=== PATIENT | male | born 1945 | race Caucasian/White ===

== ENCOUNTER → 2016-10-15 | Outpatient (CLI) | payer OTHER, MEDICARE | LOC: BMCIMAGING 10:35 | PROVIDERS: ATTEND Physician Assistant | DX: M54.42 Lumbago with sciatica, left side (principal); M51.36 Other intervertebral disc degeneration, lumbar region; M12.9 Arthropathy, unspecified ==

== ENCOUNTER → 2016-10-28 | Outpatient (CLI) | payer OTHER, MEDICARE | LOC: FIMAGING 16:06 | PROVIDERS: ATTEND Physician Assistant | DX: M48.06 Spinal stenosis, lumbar region (principal); M99.73 Connective tissue and disc stenosis of intervertebral foramina of lumbar region; M89.38 Hypertrophy of bone, other site; M51.27 Other intervertebral disc displacement, lumbosacral region ==

== ENCOUNTER → 2017-06-30 | Outpatient (CLI) | payer OTHER, MEDICARE | LOC: FIMAGING 14:30 | PROVIDERS: ATTEND Physician Assistant Medical | DX: M21.752 Unequal limb length (acquired), left femur (principal); M43.8X5 Other specified deforming dorsopathies, thoracolumbar region ==

== ENCOUNTER → 2017-07-02 | Outpatient (CLI) | payer OTHER, MEDICARE | LOC: FIMAGING 11:38 | PROVIDERS: ATTEND Physician Assistant Medical | DX: M21.70 Unequal limb length (acquired), unspecified site (principal) ==

== ENCOUNTER → 2017-09-20 | Outpatient (CLI) | payer OTHER, MEDICARE | LOC: BMCIMAGING 10:33 | PROVIDERS: ATTEND Physician Assistant | DX: Z13.820 Encounter for screening for osteoporosis (principal); M81.0 Age-related osteoporosis without current pathological fracture ==

== ENCOUNTER → 2018-08-16 | Outpatient (CLI) | payer OTHER, MEDICARE | LOC: FIMAGING 13:02 | PROVIDERS: ATTEND Neurological Surgery | DX: M48.062 Spinal stenosis, lumbar region with neurogenic claudication (principal); M46.96 Unspecified inflammatory spondylopathy, lumbar region; M51.36 Other intervertebral disc degeneration, lumbar region; M51.37 Other intervertebral disc degeneration, lumbosacral region; N28.9 Disorder of kidney and ureter, unspecified; M41.86 Other forms of scoliosis, lumbar region ==

== ENCOUNTER → 2018-08-24 | Outpatient (CLI) | payer OTHER, MEDICARE | LOC: FIMAGING 08:58 | PROVIDERS: ATTEND Physician Assistant | DX: N28.9 Disorder of kidney and ureter, unspecified (principal) ==

== ENCOUNTER → 2018-08-29 | Outpatient (CLI) | payer OTHER, MEDICARE ==
[~2018-08-29] MED LIST: IOPAMIDOL (ISOVUE-300) 100 ML BTL ONE
== END ==
LOC: FIMAGING 11:22
PROVIDERS: ATTEND Physician Assistant
DX: N28.89 Other specified disorders of kidney and ureter (principal); K57.30 Diverticulosis of large intestine without perforation or abscess without bleeding
CPT/HCPCS: 74178; Q9967

== ENCOUNTER → 2018-10-10 | Outpatient (CLI) | payer OTHER, MEDICARE | LOC: BMCIMAGING 08:52 | PROVIDERS: ATTEND Physician Assistant | DX: Z01.818 Encounter for other preprocedural examination (principal); K44.9 Diaphragmatic hernia without obstruction or gangrene ==

== ENCOUNTER 2018-11-08 05:57 | Inpatient (IN) | payer OTHER, MEDICARE ==
--- NOTE | 2018-11-02 08:59 | GHP ---
[f rep st] PREOP HISTORY AND PHYSICAL DATE OF ADMISSION: 11/08/2018 HISTORY OF PRESENT ILLNESS: The patient is a 73-year-old male with back and leg pain. The pain seems to be concentrated in the gluteal region radiating to the left anterior medial thigh. He has tried an L4-5 epidural steroid injection and an L3-4 transforaminal epidural steroid injection without long- lasting relief of his pain. He notes foot numbness and dorsi and plantarflexion weakness. Rest will improve his back pain and activity worsens his pain. He denies loss of bowel or bladder control. PAST MEDICAL HISTORY: GERD. PAST SURGICAL HISTORY: Transurethral resection of prostate. SOCIAL HISTORY: Admits to social use of alcohol. Denies tobacco use. He is and retired. FAMILY HISTORY: No pertinent neurosurgical family history. ALLERGIES: Metoprolol, Avocado. HOME MEDICATIONS: 1. Vitamin. 2. Prevacid. 3. Hydrochlorothiazide. 4. Atenolol. REVIEW OF SYSTEMS: Negative except for what is mentioned in the HPI. PHYSICAL EXAM: GENERAL: Patient seen and examined. No distress. Mood and affect are appropriate. Alert, oriented. HEENT: Extraocular movements are intact. Pupils are equal and reactive. Facial expression is symmetrical. Tongue is midline with protrusion. Hearing grossly intact. Speech is fluent. EXTREMITIES: Muscle strength is well preserved in his upper and lower extremities at a 5/5. Sensation intact RESULTS: MRI of the lumbar spine reveals moderate degenerative disk disease with right lateral osteophytes and moderate bilateral facet arthropathy resulting in mild to moderate right neural foraminal stenosis and mild right lateral recess stenosis at L2-3. There is moderate to severe central canal stenosis, severe left lateral recess, and moderate to severe bilateral neural foraminal stenosis secondary to moderate degenerative disk disease, left paramedian disk herniation, osteophytes, and bilateral facet arthropathy at L3- 4. At L4-5, there is moderate central canal stenosis, moderate to severe left lateral recess stenosis, and moderate to severe left neural foraminal stenosis secondary to severe bilateral facet arthropathy, mild degenerative disk disease with circumferential disk bulge and osteophytes. At L5-S1, there is mild degenerative disk disease, moderate bilateral facet arthropathy, mild disk bulge , and mild grade 1 anterolisthesis resulting in mild left neural foraminal stenosis without central canal stenosis. ASSESSMENT AND PLAN: In summary, the patient is a 73-year-old male with ongoing back and lower extremity symptoms. He has tried conservative treatment without long-term relief. We recommend proceeding with surgical intervention at this time with a transforaminal lumbar interbody fusion at L2-3, 3-4, 4-5, and L5-S1. The risks, benefits, procedure, and recovery process were discussed in detail with the patient. Patient has elected to move forward with surgery, and all consents have been signed. /[id number]/MODL MTDD
[2018-11-08] MEDS ORDERED: morphINE SR 15 MG TAB PO ONE (06:24)
[2018-11-08] MEDS ORDERED: ceFAZolin 2 GM/DEXTROSE 100 ML IV ONE (06:24)
[2018-11-08] MEDS ORDERED: ACETAMINOPHEN 500 MG TAB PO ONE (06:24)
[2018-11-08] MEDS ORDERED: GABAPENTIN 300 MG CAP PO ONE (06:24)
[2018-11-08] MEDS ORDERED: LR 1,000 ML IV ONE (06:25)
[2018-11-08] MEDS ORDERED: GENTAMICIN SULFATE 80 MG/2 ML VIAL ONE ×2 (06:42→10:11)
[2018-11-08] MEDS ORDERED: BUPIVACAINE/EPI 0.25% 30 ML SDV ONE (06:42)
[2018-11-08] MEDS ORDERED: THROMBIN (BOVINE) 20,000 UNIT VIAL TP ONE (06:42)
[2018-11-08] MEDS ORDERED: CHLORHEXIDINE GLUC HIBICLENS 118 ML BTL TP ONE (06:42)
[2018-11-08] MEDS ORDERED: CITRATE DEXTROSE SOLN 500 ML BAG ONE ×2 (07:14→08:23)
--- NOTE | 2018-11-08 07:22 | PDANEPAE ---
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 HUA triggers - Neurologic History Hx Cerebrovascular Accident: No Hx Seizures: No Hx Dementia: No - Endocrine History Hx Diabetes: No - Renal History Hx Renal Disorders: No - Liver History Hx Hepatic Disorders: No - Neurological & Psychiatric Hx Hx Neurological and Psychiatric Disorders: Yes Neurological / Psychiatric History Comment: bilat feet numbness/tingling L>R. L buttock sciatic pain - Cancer History Hx Cancer: No - Congenital Disorder History Hx Congenital Disorders: No - GI History Hx Gastrointestinal Disorders: Yes Gastrointestinal History Comment: acid reflux, diahrrea - Other Health History Other Health History: [place]. bridges fixed. ED - Chronic Pain History Chronic Pain: Yes (back,legs,feet) - Surgical History Prior Surgeries: nonein last 5 yrs. turp 2006. arthoscopic sx 1979' ANE Review of Systems Review of Systems: - Exercise capacity METS (RN): 3 METS ANE Patient History - Allergies Allergies/Adverse Reactions: metoprolol Allergy (Intermediate, Verified 10/28/18 11:32) avocado Allergy (Verified 10/26/18 16:32) - Home Medications Home Medications: Atenolol [Tenormin 50 mg (*)] 50 mg PO DAILY 10/26/18 [Last Taken Unknown] Hydrochlorothiazide [HCTZ (*)] 25 mg PO DAILY 10/26/18 [Last Taken Unknown] Lansoprazole [Prevacid] 30 mg PO DAILY 10/26/18 [Last Taken Unknown] Multivitamins [Multivitamin (*)] 1 each PO DAILY 10/26/18 [Last Taken Unknown] - NPO status NPO Since - Liquids (Date): 11/08/18 NPO Since - Solids (Date): 11/07/18 - Smoking Hx Smoking Status: Never smoked - Family Anes Hx Family Hx Anesthesia Complications: none ANE Labs/Vital Signs - Vital Signs Blood Pressure: 145/88 Heart Rate: 48 Respiratory Rate: 14 O2 Sat (%): 91 Height: 180.34 cm Weight: 86.183 kg ANE Physical Exam - Airway Neck exam: FROM Mallampati Score: Class 1 Mouth exam: normal dental/mouth exam - Pulmonary Pulmonary: no respiratory distress, no rales or rhonchi - Cardiovascular Cardiovascular: regular rate and rhythym, no murmur, rub, or gallop - ASA Status ASA Status: III ANE Anesthesia Plan Anesthesia Plan: general endotracheal anesthesia Lines/Monitors: arterial line Total IV Anesthesia: Yes
--- NOTE | 2018-11-08 07:23 | PDHPUP ---
History & Physical Update H&P update statement: This history and physical update is based on an assessment of the patient which was completed after admission or registration (within 24 hours), but prior to the surgery/procedure. H&P update: H&P reviewed & patient examined, no change in patient's condition since H&P completed
[2018-11-08] MEDS ORDERED: MIDAZOLAM 2 MG/2 ML VIAL ONE (07:26)
[2018-11-08] MEDS ORDERED: REMIFENTANIL HCL 1 MG VIAL ONE ×6 (07:34→14:42)
[2018-11-08] MEDS ORDERED: PROPOFOL 200 MG/20 ML VIAL ONE (07:34)
[2018-11-08] MEDS ORDERED: LIDOCAINE 2% 100 MG/5 ML SYR ONE (07:34)
[2018-11-08] MEDS ORDERED: PROPOFOL/EMULSION 500 MG/50 ML BOTTLE IV ONE ×9 (07:34→14:42)
[2018-11-08] MEDS ORDERED: DEXMEDETOMIDINE HCL 400 MCG in NS 100 ML IV SCH (08:00)
[2018-11-08] MEDS ORDERED: *INFUSION*TRANEX ACID 1,000 MG/NS 100 ML IV ONE (09:15)
[2018-11-08] MEDS ORDERED: MIDAZOLAM 2 MG/2 ML VIAL IVP ONE (09:31)
[2018-11-08] MEDS ORDERED: DEXAMETHASONE 4 MG/ML VIAL ONE (10:44)
[2018-11-08] MEDS ORDERED: HYDROmorphONE/DILAUDID 2 MG/ML INJ ONE (15:32)
[2018-11-08] MEDS ORDERED: ONDANSETRON 4 MG/2 ML VIAL ONE (15:32)
[2018-11-08] MEDS ORDERED: METOCLOPRAMIDE 10 MG/2 ML VIAL IVP PRN (15:57)
[2018-11-08] MEDS ORDERED: MEPERIDINE 25 MG/0.5 ML AMP IVP PRN (15:57)
[2018-11-08] MEDS ORDERED: fentaNYL 100 MCG/2 ML INJ IVP PRN (15:57)
[2018-11-08] MEDS ORDERED: HYDROmorphONE/DILAUDID 1 MG/ML INJ IVP PRN ×2 (15:57→16:09)
[2018-11-08] MEDS ORDERED: NALOXONE HCL 0.4 MG/ML INJ IVP PRN (15:57)
[2018-11-08] MEDS ORDERED: PROMETHAZINE HCL 25 MG/ML INJ IVP PRN (15:57)
[2018-11-08] MEDS ORDERED: DIAZEPAM 10 MG/2 ML SYR IVP PRN (15:57)
[2018-11-08] MEDS ORDERED: LR 500 ML IV PRN (15:57)
[2018-11-08] MEDS ORDERED: oxyCODONE IR 5 MG TAB PO PRN (15:57)
[2018-11-08] MEDS ORDERED: LACTULOSE 20 GM/30 ML UDCUP PO PRN (16:09)
[2018-11-08] MEDS ORDERED: BISACODYL 10 MG SUPP PR PRN (16:09)
[2018-11-08] MEDS ORDERED: diphenhydrAMINE 25 MG CAP PO PRN (16:09)
[2018-11-08] MEDS ORDERED: MAGNESIUM HYDROXIDE 30 ML UDCUP PO PRN (16:09)
[2018-11-08] MEDS ORDERED: ONDANSETRON DISINTEGRATING 4 MG TAB PO PRN (16:09)
--- NOTE | 2018-11-08 16:24 | POSTANESTH ---
Post Anesthetic Evaluation Cardiovascular Status: Normal, Stable Respiratory Status: Normal, Stable Level of Consciousness/Mental Status: Can Participate in Eval, Moderately Sleepy Pain Control: Adequate, Prn Tx Ordered Nausea/Vomiting Control: Adequate, Prn Tx Ordered Complications Possibly Related to Anesthesia: None Noted (moving both feet on command. mild eye swelling due to positioning)
--- NOTE | 2018-11-08 16:30 | POSTOPPROG ---
Post Op Note Date of Operation: 11/08/18 Surgeon: [facility] Nurse: Lo Mehta PA-C Anesthesia: GET(General Endotracheal) Pre-op Diagnosis: Lumbar stenosis Post-op Diagnosis: Lumbar stenosis Procedure: TLIF L2-S1 Inf/Abcess present in the surg proc area at time of surgery?: No Depth: Deep Incisional (Fascial) EBL: 500-1000 Drains: Demar Muhammad Plan Plan: 73 yo male s/p TLIF L2-S1 with CSF leak, repaired - neuro checks - pain control - advance diet as tolerated - HOB flat x 3 days (until Fri am) - once upright will need x-rays - wear brace when out of bed - ONEL drain not to suction - SCDs/TEDs, Lovenox scheduled to start POD2 Exam Awake. Alert Following commands Muscle strength full
--- NOTE | 2018-11-08 17:00 | GOP ---
[f rep st] OPERATIVE REPORT DATE OF OPERATION: 11/08/2018 SURGEON: Brynn Casiano DO NEUROSURGEON: Brynn Casiano DO BANANA LOADER: Lo PACHECO PREOPERATIVE DIAGNOSIS: 1. Lumbar spondylosis. 2. Lumbar stenosis. 3. Scoliosis. 4. Radiculopathy. 5. Stenosis. POSTOPERATIVE DIAGNOSIS: 1. Lumbar spondylosis. 2. Lumbar stenosis. 3. Scoliosis. 4. Radiculopathy. 5. Stenosis. PROCEDURE PERFORMED: L2, L3, L4, L5, S1 posterior pedicle screws with Medtronic 4.75 Solera pedicle screws. L2-3, L3-4, L4-5, L5-S1 interbody fusion with left transforaminal lumbar interbody fusion with a 7 x 23 mm Medtronic elevate graft at L2-3, and 8 x 23 mm elevate graft at 3-4, a 9 x 23 mm elevate graft at L4-5, a 7 x 23 mm graft at L5-S1, 120 mm rods bilaterally. Autograft. Allograft. BMP. Microscope . Dural repair. FINDINGS: SPECIMENS: None. ESTIMATED BLOOD LOSS: 800 mL. INDICATIONS: This is a 73-year-old male with severe left-sided radiculopathy with scoliosis, stenosi s, spondylosis, and severe critical foraminal stenosis, who has failed conservative management, elect ed to move forward with an L2 to S1 T lift. Films were reviewed with my partners and these were the recommendations. DESCRIPTION OF PROCEDURE: He was identified. Consented. Sites were marked. Brought to the operati ng room, anesthetized under general endotracheal anesthesia. Rolled onto the OR bed with a Demar t able. All pressure points were appropriately padded. He was prepped and draped in the usual sterile fashion. Incision was marked with 18-gauge spinal needle. Incision was anesthetized with 0.25% Mar denny with epinephrine. Incision was made with a 10 blade. Hemostasis was obtained with Bovie bipol ar and Aquamantys. TXA was given as the patient was particularly oozy during opening. Once we had e xposed, we took an x-ray verifying we had full exposure, placed the SessionMalth stereotactic arm and perf ormed a stereotactic spin. Starting at S1 on the left, we found a stereotactic starting point with t misbah awl, tapped it into place stereotactically, then used the power ease stereotactically, then checke d the hole with a ball-tip probe and then measured a 6.5 x 50 mm screw which was placed stereotactica lly with a power ease. We performed the same procedure at L5 on the left placing a 6.5 x 50 mm screw at L4 on the left, placing a 6.5 x 55 mm screw at L3 on the left, placing a 6.5 x 50 mm screw at L2 on the left, placing a 6.5 x 55 mm screw. Following the same procedure, placed a 6.5 x 45 mm screw o n the right at S1, a 6.5 x 50 mm screw on the right at L5, a 6.5 x 50 mm screw at L4, a 6.5 x 55 mm s crew at L3 on the right, and a 6.5 x 55 mm screw at L2 on the right. These were all stemmed off, tracie mmed above 20. We performed stereotactic spins and all screws were in good position. We measured th en to place 120 mm christopher on the right side, verifying it had the appropriate length, placed the locking caps, placed distraction on this side to attempt to correct some scoliosis at this level and got fany e decent correction. Locked the locking cap. Verified we had christopher above and below. Placed 120 mm ro d on the opposite side, locking it down, but not placing any distraction as we planned to perform the T lift from the left side and we had corrected a fair amount of the scoliosis. We then used a Lekse ll to remove the spinous processes. Once the rods had been verified to be the appropriate length and all the locking caps had been verified to lock using the anti torque device, we used a Leksell to re move the spinous processes then used a high-speed drill to perform a laminectomy and complete facetec qing at L2-3, L3-4, L4-5 and L5-S1, fully decompressing the nerve root at each of these levels. At t he L5-S1 level there was a small incidental durotomy that was primarily closed with a 6-0 Prolene, wa s watertight to Valsalva, and remained watertight throughout the remainder of the case. W e then at L5-S1, retracted the thecal sac medially, entered the disk space with an 11 blade, and then used sequential farnaz until we had removed disk and cartilaginous endplate, prepared the endplates and placed a 7 x 23 mm elevate graft packed with BMP and the patient's own bone. We packed BMP and the patient's own bone anteriorly. Took x-rays in the AP and lateral plane to fully deploy this and it was in the appropriate position. The same procedure was performed at L4-5 placing a 9 x 23 mm willa vated cage packed with BMP and the patient's own bone, with BMP and the patient's own bone packed ant eriorly, and 8 x 23 mm elevate cage at L3-4 and a 7 x 23 mm cage following the same procedure at L2-3 . Once we had x-rays verifying all the cages were in good position, we then copiously irrigated with 3 L of gentamicin infused saline. We had previously decorticated stereotactically using the stereot actic guidance and drilled out the facet joints on the right side. We packed the facet joints with B MP and the patient's own bone, packed BMP out laterally and the patient's own bone out laterally, and then trocar to drain out inferiorly, placing in the subfascial space. Closed the fascia with 0 Vicry l pop offs, subcutaneous layer of 2-0 Vicryl pop offs, cutaneous layer of 3-0 Vicryl pop-offs. The s kin was closed with 3-0 running nylon. Wound was dressed with Xeroform gauze and a Tegaderm. The dr wilkinson was sutured with 2-0 Vicryl pop-off not placed to bulb suction. Neuromonitor remained stable. T here were no further complications. FLUIDS: 2500 mL of crystalloid and 750 mL Cell Saver. URINE OUTPUT: 2500 mL. DRAINS: One ONEL in the subfascial space to passive suction only. COMPLICATIONS: Incidental small durotomy primarily closed, watertight throughout remainder of case a nd with Valsalva. /[id number]/MODL
[2018-11-08] MEDS: oxyCODONE IR 5 MG TAB PO PRN (19:55)
[2018-11-08] MEDS: FAMOTIDINE 20 MG TAB PO SCH (20:15)
[2018-11-08] MEDS: SENNOSIDES/DOCUSATE SODIUM TAB PO SCH (20:15)
[2018-11-08] MEDS: ceFAZolin 2 GM/DEXTROSE 100 ML IV SCH (20:23)
[2018-11-08] MEDS: NS 1,000 ML IV SCH (20:23)
[2018-11-08] MEDS: ACETAMINOPHEN 500 MG TAB PO SCH (21:57)
[2018-11-09] MEDS: oxyCODONE IR 5 MG TAB PO PRN ×4 (03:02→18:32)
[2018-11-09] MEDS: METHOCARBAMOL 750 MG TAB PO PRN ×3 (03:02→21:14)
[2018-11-09] MEDS: ceFAZolin 2 GM/DEXTROSE 100 ML IV SCH (03:06)
[2018-11-09] MEDS: ACETAMINOPHEN 500 MG TAB PO SCH ×3 (06:01→22:17)
--- NOTE | 2018-11-09 07:33 | SOAPPROG ---
SOAP Progress Note Assessment/Plan: Assessment: 73 yo male POD #1 s/p L2-S1 TLIF with dural tear (repaired). HOB flat x 3 days Doing well this AM. bilateral foot pain gone Plan: Continue ONEL drain Pain control HOB flat until Wednesday AM 11/09/18 07:30 Subjective: Lying in bed, comfortable. HOB flat States his bilateral foot pain is gone. denies new numbness, tingling or weakness Objective: Vital Signs Temp Pulse Resp BP Pulse Ox 36.6 C 68 17 144/78 H 95 11/09/18 04:00 11/09/18 04:00 11/09/18 04:00 11/09/18 04:00 11/09/18 04:00 Laboratory Results 11/09/18 04:40 11/08/18 11/09/18 11/10/18 05:59 05:59 05:59 Intake Total 2980 Output Total 4655 Balance -1675 Neuro: DUPREE, sens + LT throughout Dressing: CDI ONEL: No suction to bulb - 105 ml ICD10 Worksheet Patient Problems: Problems Problem Status Onset Lumbar stenosis Acute - ICD10 Problem Qualifiers (1) Lumbar stenosis Qualifiers: Neurogenic claudication status: with neurogenic claudication Qualified Code (s): M48.062 - Spinal stenosis, lumbar region with neurogenic claudication
[2018-11-09] MEDS: PANTOPRAZOLE SODIUM 40 MG TAB PO SCH (08:38)
[2018-11-09] MEDS: SENNOSIDES/DOCUSATE SODIUM TAB PO SCH ×2 (08:38→21:14)
[2018-11-09] MEDS: FAMOTIDINE 20 MG TAB PO SCH ×2 (08:38→21:14)
[2018-11-09] MEDS: MULTIVITAMINS 1 EACH TAB PO SCH (08:38)
[2018-11-09 09:13] LABS: PLATELET COUNT 151 10^3/uL (150-400)
--- NOTE | 2018-11-09 09:43 | PDMN ---
Medical Necessity Medical necessity: [facility] IP only surgery; cpt 06489 L2-S1 TLIF
[2018-11-09] MEDS: ATENOLOL 50 MG TAB PO SCH (10:05)
[2018-11-09] MEDS: HYDROCHLOROTHIAZIDE 25 MG TAB PO SCH (10:06)
[2018-11-09] MEDS: NS 1,000 ML IV SCH (10:11)
--- NOTE | 2018-11-09 15:08 | ASMTCMCOM ---
CM Note CM Note Notes: Pt s/p L2-S1 TLIF, on bed rest until Wednesday. PT/OT to eval when appropriate. Pt was pre-arranged with [facility] by MD office. CM to follow. D/c plan is TBD Date Signed: 11/09/2018 03:06 PM Electronically Signed By:ANA High
[2018-11-10] MEDS: oxyCODONE IR 5 MG TAB PO PRN ×2 (03:39→08:44)
[2018-11-10] MEDS: POLYETHYLENE GLYCOL 3350 17 GM PKT PO PRN ×2 (03:40→08:42)
[2018-11-10] MEDS: ACETAMINOPHEN 500 MG TAB PO SCH ×3 (06:04→22:30)
--- NOTE | 2018-11-10 07:19 | NEUSURGPN ---
Assessment/Plan: 73 yo male s/p TLIF L2-S1 with CSF leak, repaired POD2 - neuro checks - pain control - advance diet as tolerated - Bowel protocol, discussed with patient not straining. - HOB flat x 3 days (until Fri at 5pm, then raise HOB 10 degree and hour) - once upright will need x-rays - wear brace when out of bed - ONEL drain will d/c today - SCDs/TEDs, Lovenox Subjective: pain tolerable with medications. Objective: Exam Awake. Alert Following commands MAEx4 5/5 and equal in BUE and BLE Incision flat c/d/i Catheter Insertion Date: 11/09/18 - Physician Discussed Patient with : Oh Neurosurgery Physical Exam - Vitals, I&O, Labs I and O 11/09/18 11/10/18 11/11/18 05:59 05:59 05:59 Intake Total 2980 1050 Output Total 4655 3745 Balance -1675 -2695 Weight 86.183 kg Intake: Oral (ml) 180 1050 IV Intake (ml) 2500 IV Infused (ml) 300 Tranexamic Acid 1,000 mg 100 In Ns 100 ml @ As Directed IV ONCE ONE Rx#: [id number] ceFAZolin 2 GM/DEXTROSE 100 100 ml @ 200 mls/hr IV ONCALL ONE Rx#:[id number] ceFAZolin 2 GM/DEXTROSE 100 100 ml @ 200 mls/hr IV Q8H JOHNY Rx#:[id number] Output: Urine (ml) 3350 3700 Catheter 3350 3700 Estimated Blood Loss (ml) 1200 Emesis (ml) 0 ONEL Drain Output (ml) 105 45 #1 Right Back Demar 105 45 Muhammad Other: Intake Quantity Yes Sufficient Output Comment Catheter straight cath Number of Voids Catheter 1 1 Bladder Scan Volume (ml) Catheter 999 Urinal 999 Vital Signs Temp Pulse Resp BP Pulse Ox 36.7 C 61 17 107/52 L 95 11/10/18 00:00 11/10/18 00:00 11/10/18 00:00 11/10/18 00:00 11/10/18 00:00 Laboratory Results 11/09/18 09:05 ICD10 Worksheet Patient Problems: Problems Problem Status Onset Lumbar stenosis Acute
[2018-11-10] MEDS: SENNOSIDES/DOCUSATE SODIUM TAB PO SCH ×2 (08:43→21:38)
[2018-11-10] MEDS: MULTIVITAMINS 1 EACH TAB PO SCH (08:43)
[2018-11-10] MEDS: PANTOPRAZOLE SODIUM 40 MG TAB PO SCH (08:43)
[2018-11-10] MEDS: FAMOTIDINE 20 MG TAB PO SCH ×2 (08:44→21:37)
[2018-11-10] MEDS: ENOXAPARIN 40 MG/0.4 ML SYR SC SCH (08:44)
[2018-11-10] MEDS: HYDROCHLOROTHIAZIDE 25 MG TAB PO SCH (10:18)
[2018-11-10] MEDS: ATENOLOL 50 MG TAB PO SCH (10:18)
[2018-11-10] MEDS: METHOCARBAMOL 750 MG TAB PO PRN ×2 (14:05→22:30)
[2018-11-10] MEDS: ONDANSETRON 4 MG/2 ML VIAL IVP PRN (19:40)
[2018-11-11] MEDS: oxyCODONE IR 5 MG TAB PO PRN ×3 (03:04→16:15)
[2018-11-11] MEDS: ACETAMINOPHEN 500 MG TAB PO SCH ×3 (06:27→22:33)
--- NOTE | 2018-11-11 08:50 | NEUSURGPN ---
Date of Surgery: 11/08/18 Post Op Day: 3 Assessment/Plan: 73 yo male s/p TLIF L2-S1 with CSF leak, repaired POD3 - neuro checks - pain controlled on current regimen - Bowel protocol, discussed with patient not straining. Had BM on 11/10 - HOB flat x 3 days. May start to raise HOB by 10 degrees every hour starting at 1700 today (11/11) - once upright will need x-rays - wear brace when out of bed - SCDs/TEDs, Lovenox Patient seen by myself and Dr. Casiano. Subjective: No LE symptoms. Having thumb numbness. Objective: Awake. Alert. PERRL. EOMI Facial expression symmetrical Muscle strength full at 5/5 Sensation intact Catheter Insertion Date: 11/09/18 - Physician Patient Seen by DrLilly: Oh Neurosurgery Physical Exam - Vitals, I&O, Labs I and O 11/10/18 11/11/18 11/12/18 05:59 05:59 05:59 Intake Total 1050 400 Output Total 3745 495 Balance -2695 -95 Intake: Oral (ml) 1050 400 Output: Urine (ml) 3700 475 Catheter 3700 200 Urinal 275 ONEL Drain Output (ml) 45 20 #1 Right Back Demar 45 20 Muhammad Other: Intake Quantity Yes Sufficient Output Comment Catheter straight cath Number of Voids Catheter 1 Number of Stools Bedpan 1 Bladder Scan Volume (ml) Catheter 999 Urinal 999 Vital Signs Temp Pulse Resp BP Pulse Ox 37.1 C 74 16 115/65 89 L 11/11/18 08:00 11/11/18 08:00 11/11/18 08:00 11/11/18 08:00 11/11/18 08:00 Laboratory Results 11/09/18 09:05 ICD10 Worksheet Patient Problems: Problems Problem Status Onset Lumbar stenosis Acute
[2018-11-11] MEDS: HYDROCHLOROTHIAZIDE 25 MG TAB PO SCH (09:40)
[2018-11-11] MEDS: SENNOSIDES/DOCUSATE SODIUM TAB PO SCH ×2 (09:40→21:06)
[2018-11-11] MEDS: MULTIVITAMINS 1 EACH TAB PO SCH (09:41)
[2018-11-11] MEDS: FAMOTIDINE 20 MG TAB PO SCH ×2 (09:41→23:11)
[2018-11-11] MEDS: PANTOPRAZOLE SODIUM 40 MG TAB PO SCH (09:41)
[2018-11-11] MEDS: ATENOLOL 50 MG TAB PO SCH (09:41)
[2018-11-11] MEDS: ENOXAPARIN 40 MG/0.4 ML SYR SC SCH (09:41)
[2018-11-11] MEDS: METHOCARBAMOL 750 MG TAB PO PRN ×2 (16:15→22:34)
[2018-11-12] MEDS ORDERED: PNEUMOC 13-VAL CONJ-DIP CRM/PF 0.5 ML SYR (PREVNAR 13) IM ONE (05:08)
[2018-11-12] MEDS: ACETAMINOPHEN 500 MG TAB PO SCH ×3 (06:36→21:22)
--- NOTE | 2018-11-12 08:14 | SOAPPROG ---
SOAP Progress Note Assessment/Plan: Assessment: 73 yo male POD #4 s/p L2-S1 TLIF with dural tear (repaired). HOB flat x 3 days, now he is up and moving well. Doing well this AM. bilateral foot pain gone Indwelling medeiros due to retention Plan: advance activity with PT/OT Check dressing and call if any clear drainage Lumbar xrays today to evaluate hardware. Continue Medeiros 11/12/18 08:14 Subjective: Standing at sink brushing teeth with OT. Doing well, pain controlled. No headaches since he has been up Objective: Vital Signs Temp Pulse Resp BP Pulse Ox 37.0 C 70 18 106/69 89 L 11/12/18 07:25 11/12/18 07:25 11/12/18 07:25 11/12/18 07:25 11/12/18 07:25 Laboratory Results 11/09/18 09:05 11/11/18 11/12/18 11/13/18 05:59 05:59 05:59 Intake Total 400 1000 Output Total 495 2750 Balance -95 -1750 neuro: DUPREE, sens +LT FC X 4 ambulatory Dressing : CDI ICD10 Worksheet Patient Problems: Problems Problem Status Onset Lumbar stenosis Acute - ICD10 Problem Qualifiers (1) Lumbar stenosis Qualifiers: Neurogenic claudication status: with neurogenic claudication Qualified Code (s): M48.062 - Spinal stenosis, lumbar region with neurogenic claudication
[2018-11-12] MEDS: ONDANSETRON 4 MG/2 ML VIAL IVP PRN ×2 (09:21→13:49)
[2018-11-12] MEDS: ENOXAPARIN 40 MG/0.4 ML SYR SC SCH (09:25)
[2018-11-12] MEDS: MULTIVITAMINS 1 EACH TAB PO SCH (09:26)
[2018-11-12] MEDS: PANTOPRAZOLE SODIUM 40 MG TAB PO SCH (09:26)
[2018-11-12] MEDS: FAMOTIDINE 20 MG TAB PO SCH ×2 (09:26→21:22)
[2018-11-12] MEDS: SENNOSIDES/DOCUSATE SODIUM TAB PO SCH ×2 (09:39→21:30)
--- NOTE | 2018-11-12 11:34 | ASMTCMCOM ---
CM Note CM Note Notes: Pt off BR, was able to work with PT today who rec home/outpatient. Pt and do still want [facility]. Referral sent in Delvis and Karen with [facility] to visit pt today. D/c plan of care: Home with [facility] Date Signed: 11/12/2018 11:33 AM Electronically Signed By:ANA High
[2018-11-12] MEDS: ATENOLOL 50 MG TAB PO SCH (16:03)
[2018-11-12] MEDS: HYDROCHLOROTHIAZIDE 25 MG TAB PO SCH (16:03)
[2018-11-13] MEDS: ACETAMINOPHEN 500 MG TAB PO SCH (06:53)
--- NOTE | 2018-11-13 07:20 | SOAPPROG ---
SOAP Progress Note Assessment/Plan: Assessment: 73 yo male POD #5 s/p L2-S1 TLIF with dural tear (repaired). HOB flat x 3 days, now he is up and moving well. Doing well this AM. bilateral foot pain gone Bernard removed and voiding with about 200ml of PVR Plan: Cleared by PT/OT for DC home DC today 11/13/18 07:38 Subjective: up walking hallway. Doing well. Eager to DC Objective: Vital Signs Temp Pulse Resp BP Pulse Ox 37.0 C 77 16 111/62 94 11/12/18 23:06 11/12/18 23:06 11/12/18 23:06 11/12/18 23:06 11/12/18 23:06 Laboratory Results 11/09/18 09:05 11/12/18 11/13/18 11/14/18 05:59 05:59 05:59 Intake Total 1000 300 Output Total 2750 975 Balance -1750 -675 Post op xrays show good position of hardware Neuro: ambulatory DUPREE, sens +LT incision: CDI, dry ICD10 Worksheet Patient Problems: Problems Problem Status Onset Lumbar stenosis Acute - ICD10 Problem Qualifiers (1) Lumbar stenosis Qualifiers: Neurogenic claudication status: with neurogenic claudication Qualified Code (s): M48.062 - Spinal stenosis, lumbar region with neurogenic claudication
[2018-11-13] MEDS: HYDROCHLOROTHIAZIDE 25 MG TAB PO SCH (08:01)
[2018-11-13] MEDS: PANTOPRAZOLE SODIUM 40 MG TAB PO SCH (08:01)
[2018-11-13] MEDS: MULTIVITAMINS 1 EACH TAB PO SCH (08:01)
[2018-11-13] MEDS: ATENOLOL 50 MG TAB PO SCH (08:05)
[2018-11-13] MEDS: FAMOTIDINE 20 MG TAB PO SCH (08:05)
[2018-11-13] MEDS: SENNOSIDES/DOCUSATE SODIUM TAB PO SCH (08:05)
[2018-11-13] MEDS: ENOXAPARIN 40 MG/0.4 ML SYR SC SCH (08:06)
[2018-11-13] MEDS ORDERED: TAMSULOSIN HCL 0.4 MG CAP PO SCH (09:00)
--- NOTE | 2018-11-13 10:27 | ASMTLACE ---
LACE Length of stay for Answers: 4-6 days current admission Acuity / Level of Answers: Yes Care: Did the patient have an inpatient admission? Comorbidities - select Answers: Opioid dependence all that apply / Chronic pain Other Notes: HTN # of Emergency department Answers: 0 visits in the last 6 months Score: 12 Date Signed: 11/13/2018 10:27 AM Electronically Signed By:Elizabeth Chacko RN
--- NOTE | 2018-11-13 11:02 | ASMTDCNOTE ---
Case Management Discharge Discharge Order Complete? Answers: Yes Patient to Obtain Answers: Independently Medications Transportation Arranged Answers: Family/Friends Transport will Pick (Date 11/13/2018 12:00 AM & Time) EMTALA Complete Answers: No Notes: N/A Case Management Transport Answers: No Notes: N/A Form Complete Faxed Final Orders Answers: Yes Notes: Discharge paperwork sen t via [employer] Agency/Facility Transfer Answers: Yes Notes: Discharge paperwork sen t Report Printed & Faxed to via [employer] Receiving Agency Family Notified Answers: Yes Notes: Pt notified Discharge Comments Notes: Spoke barbara Villagomez RN. Pt to discharge home independently with [facility] support today. [facility] (PT/OT) previously arranged. Discharge paperwork (therapy evals and discharge medications) sent via [employer]. No discharge orders sent secondary to prior protocol arranged by and Negrita. Call placed to [facility] , spoke with Brittany. DEY with answering service to confirm start of care and receipt of paperwork - awaiting call back from on-call RN. Update provided to pt and Dahlia. Call received from Verito Wesley RN, weekend seismograph supervisor at [facility]. Confirmed start of care for Wednesday11/14/18 and receipt of paperwork. Pt to follow up as directed. IM signed, copy placed in chart. CM available for any further issues or concerns. Discharge Plan: Home with [facility] Date Signed: 11/13/2018 10:55 AM Electronically Signed By:Elizabeth Chacko RN
[2018-11-13 11:25] VITALS: BP 117/72
--- NOTE | 2018-11-15 14:50 | SOAPPROG ---
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 Advised that nerve regeneration can take up to one year and after that time he may expect to have what ever deficit persists may be permanent. He felt comfortable with the explanations I offered him and expressed gratitude for the call back and his overall care here at [facility]. I offered him a referral and he declined at this time. I asked him to call back if he had any other questions or issues. Objective: Vital Signs Temp Pulse Resp BP Pulse Ox 36.7 C 82 17 114/77 92 11/13/18 09:38 11/13/18 09:38 11/13/18 09:38 11/13/18 09:38 11/13/18 09:38 Laboratory Results 11/09/18 09:05 ICD10 Worksheet Patient Problems: Problems Problem Status Onset Lumbar stenosis Acute
--- NOTE | 2018-11-18 12:12 | GDS ---
[f rep st] DISCHARGE SUMMARY ADMISSION DIAGNOSES: Lumbar spondylosis with stenosis, lumbar radiculopathy. DISCHARGE DIAGNOSES: Lumbar spondylosis with stenosis, lumbar radiculopathy. CONSULTS: Physical and Occupational Therapy. PROCEDURE: L2 to S1 transforaminal lumbar interbody fusion. HOSPITAL COURSE: The patient is a 73-year-old male who failed outpatient conservative treatment for his back and lower extremity symptoms. He was found on MRI to have lumbar spondylosis with stenosis and elected to move forward with surgery. He underwent surgery on November 08, 2018, by Dr. Brynn Casiano with a transfemoral lumbar interbody fusion at L2 to S1 with dural repair. The patient tolerated the surgery well and was transferred to the floor. He was instructed to lay fl at for a total of 5 days due to the dural tear that was repaired intraoperatively. His ONEL drain was removed once output was reduced. Postop operative x-ray showed hardware in good placement. He was s een by Physical and Occupational therapy. Once he was tolerating a diet, voiding without difficulty, pain controlled, and he was medically stable. He was deemed suitable for discharge. He was dischar jazmine to home on November 13. /[id number]/MODL
== END 2018-11-13 10:36 | disposition home or self-care (01) | DRG 454 ==
LOC: F3N 05:57
PROVIDERS: ADMIT Neurological Surgery; ATTEND Neurological Surgery
DX: M47.26 Other spondylosis with radiculopathy, lumbar region (principal); M51.16 Intervertebral disc disorders with radiculopathy, lumbar region; M48.061 Spinal stenosis, lumbar region without neurogenic claudication; M41.9 Scoliosis, unspecified; G96.11 Dural tear; R33.9 Retention of urine, unspecified; G56.22 Lesion of ulnar nerve, left upper limb
CPT/HCPCS: 97116-GP; 97161-GP; 97166-GO; 97535-GO; C1713; J0690; J1100; J1170; J1580; J1650; J2001; J2250; J2405; J2704

== ENCOUNTER → 2018-12-19 | Outpatient (CLI) | payer OTHER, MEDICARE | LOC: FIMAGING 09:46 ==